=== PATIENT | female | born 1955 | race Two or more races ===

== ENCOUNTER 2022-05-14 18:18 | Emergency (ER) | payer MEDICARE, MEDICAID ==
[~2022-05-14] VITALS: Ht 152.4 cm; Wt 61.0 kg
[2022-05-14 19:07] VITALS: BP 139/82
== END 2022-05-14 22:08 | disposition home or self-care (01) ==
LOC: ER 18:18
DX: R07.0 Pain in throat (principal)
CPT/HCPCS: 70490